=== PATIENT | female | born 1990 | race Caucasian/White ===

== ENCOUNTER 2016-07-20 13:55 | Emergency (ER) | payer BC ==
--- NOTE | ~2016-07-20 | US67 ---
[facility] A Service of [facility] & [facility] RADIOLOGY TEXT RESULTS PATIENT: NANNETTE KHAN LOCATION: SED : 89 UNIT #: [id number] AGE: [address]: Randolph Gamboa MD SEX: F ORDER DR: [id number] [address] [address] [id number] E MR#: [id number] #: [id number] NAME: NANNETTE KHAN : 1990 SEX: F STUDY DATE/TIME: 07/20/2016 15:46 UNIT: SED ROOM: STUDY DESCRIPTION: Gallbladder Attending Physician: Randolph Gamboa M.D. Referring Physician: Randolph Gamboa M.D. Ordering Physician: Randolph Gamboa M.D. Primary Care Physician: No Primary Care Physician MEDICAL IMAGING REPORT This report is preliminary unless electronic signature is present. Gallbladder ultrasound, 07/20/2016. INDICATIONS Nausea, vomiting and diarrhea for 3 days. Back pain today. ; Sonographic imaging of the gallbladder was performed. COMPARISON There are no comparisons. FINDINGS Visualized aspects of the pancreas and liver are unremarkable. Portions were obscured by bowel gas. Right kidney nonobstructed and measures 11.2 cm long axis. Gallbladder sonographically unremarkable for degree of distension. No sonographic Almaraz's sign was described. Extrahepatic common bile duct measures 4-5 mm. IMPRESSION 1. Negative gallbladder ultrasound. Dictated by... Randolph Warren M.D. THIS IS AN ELECTRONICALLY VERIFIED REPORT Randolph Warren M.D. at 07/20/2016 11:04 PM Mike TD: 07/20/2016 17:19 JOB #: [id number] MEDICAL IMAGING REPORT Page 1 of 1
[2016-07-20] MEDS ORDERED: BIRTH CONTROL PILL (13:57)
[2016-07-20 14:22] LABS: URINE SOURCE CLEAN CATCH
[2016-07-20 14:26] LABS: BASOPHIL# 0.1 X10e3 (0-0.3); BASOPHIL% 0.5 % (0-2.5); EOSINOPHIL# 0.2 X10e3 (0-0.7); EOSINOPHIL% 1.7 % (0.0-7.0); HEMATOCRIT 40.4 % (35.0-45.0); HEMOGLOBIN 13.7 gm/dL (12.0-16.0); LYMPHOCYTE# 1.7 X10e3 (1.0-3.5); LYMPHOCYTE% 17.4 % (17.0-45.0); MEAN CELL VOLUME 90.6 FL (83-96); MEAN CORPUSCULAR HEMOGLOBIN 30.6 PG (28-34); MEAN CORPUSCULAR HGB CONC 33.8 g/dL (30-36); MEAN PLATELET VOLUME 7.6 FL (6.5-11.5); MONOCYTE% 10.6 % (3.0-12.0); NEUTROPHIL# 6.9 X10e3 (1.5-7.1); NEUTROPHIL% 69.8 % (40-75); PLATELET COUNT 370 X10e3 (140-420); RED BLOOD COUNT 4.46 X10e (3.90-5.30); URINE APPEARANCE CLEAR; URINE BILIRUBIN NEG (NEG); URINE BLOOD TRACE-LYSED (NEG); URINE COLOR YELLOW; URINE GLUCOSE NEG (NORM); URINE KETONE NEG (NEG); URINE LEUKOCYTE ESTERASE NEG (NEG); URINE NITRATE NEG (NEG); URINE PROTEIN TRACE (NEG); URINE SPECIFIC GRAVITY 1.025 (1.003-1.035); WHITE BLOOD COUNT 9.8 X10e3 (4.0-10.5)
[2016-07-20 14:30] LABS: DIFF IND NO; MICRO INDICATED? YES
[2016-07-20 14:35] LABS: CULTURE INDICATED? NO; URINE BACTERIA NEG (NEG); URINE SQUAMOUS EPITHELIAL CELL OCCAS /[HPF]; URINE WBC 0-2 /[HPF] (0-5)
[2016-07-20 14:46] LABS: ALBUMIN SERUM 4.2 g/dL (3.5-5.0); BILIRUBIN, DIRECT 0.1 mg/dL (0.0-0.2); BILIRUBIN,INDIRECT 0.2 mg/dL (0.0-0.9); BILIRUBIN,TOTAL 0.3 mg/dL (0.2-2.0); BUN/CREATININE RATIO 15.71; CALCIUM SERUM 8.3 mg/dL (8.4-10.2); CREATININE SERUM 0.7 mg/dL (0.6-1.4); GLOM FILT RATE Estimated 121.3 mL/min (>60); POTASSIUM 3.5 mmol/L (3.5-5.1); PROTEIN TOTAL SERUM 7.6 g/dL (6.0-8.3)
== END 2016-07-20 16:38 | disposition home or self-care (01) ==
LOC: SED 13:55
PROVIDERS: Emergency Medicine
DX: K29.70 Gastritis, unspecified, without bleeding (principal)
CPT/HCPCS: 36415; 76705; 80048; 80076; 81003; 83690; 84703; 85025; 96361; 96374; 96375; 99284; J1170; J2405